=== PATIENT | male | born 1995 | race Caucasian/White ===

== ENCOUNTER 2017-04-02 22:33 | Emergency (ER) | payer OTHER ==
[~2017-04-02] VITALS: Ht 188 cm; Wt 97.5 kg
[2017-04-02 23:11] LABS: BASO % 0 % (0-3); EOS % 1 % (0-3); HEMATOCRIT 41.4 % (39.0-53.0); HEMOGLOBIN 13.9 g/dL (13.0-17.5); LYMPH # 1.7 x10^3/uL (1.0-4.8); LYMPH % 16 % (24-48); MEAN CORPUSCULAR HEMOGLOBIN 28 pg (25-35); MEAN CORPUSCULAR HGB CONC 34 g/dL (31-37); MEAN CORPUSCULAR VOLUME 83 fL (79-100); MONO % 8 % (0-9); NEUT % 75 % (31-73); PLATELET COUNT 168 x10^3/uL (140-400); RED BLOOD COUNT 4.99 x10^6/uL (4.30-5.70); RED CELL DISTRIBUTION WIDTH 14.3 % (11.5-14.5); WHITE BLOOD COUNT 10.8 x10^3/uL (4.0-11.0)
[2017-04-02] MEDS ORDERED: ONDANSETRON PF 4 MG/2 ML VIAL. IV ONE (23:15)
[2017-04-02] MEDS ORDERED: HYDROmorphone 2 MG/ML VIAL IV ONE (23:15)
[2017-04-02 23:19] LABS: CALCIUM 8.9 mg/dL (8.5-10.1); CREATININE 1.2 mg/dL (0.7-1.3); POTASSIUM 4.1 mmol/L (3.5-5.1)
[2017-04-02 23:20] LABS: INR 1.1 (0.8-1.1); PROTHROMBIN TIME PATIENT 13.6 SEC (11.7-14.0)
[2017-04-02 23:25] LABS: ALBUMIN 4.5 g/dL (3.4-5.0); ALBUMIN/GLOBULIN RATIO 1.4 (1.0-1.7); TOTAL BILIRUBIN 0.4 mg/dL (0.2-1.0); TOTAL PROTEIN 7.8 g/dL (6.4-8.2)
[2017-04-02] MEDS ORDERED: HYDR-971 PO (23:46)
[2017-04-02] MEDS ORDERED: IBUP-1007 PO (23:46)
--- NOTE | 2017-04-02 23:46 | PHYS DOC ---
Past Medical History Past Medical History: No Pertinent History Past Surgical History: Appendectomy Alcohol Use: None Additional Information: SOBER Drug Use: None Adult General Chief Complaint Chief Complaint: ANKLE PROBLEM HPI HPI Patient is a 21 year old gentleman who presents here today complaining of possible open fracture of his right ankle on the lateral aspect that occurred while he was playing fastball. Patient reports while playing basketball he twisted his ankle and he fell to the ground. Per EMS he noticed an abrasion to the area and they told him that he has an open fracture. Patient does not recall any bone or bone fragment poking through the skin. Per the patient he does not recall anybody seeing him are telling him that there was bone poking through but he doesn't recall them saying that bone might have poked through since it was a abrasion to his right ankle and they're presuming that he had a right ankle fracture. Patient denies any head trauma. Patient denies any pain anywhere else. Patient denies any pain to his C-spine T-spine or L-spine. Patient denies any pain to his upper extremities. Patient denies any pain to his bilateral knees or pelvis. Patient denies any trauma to his left lower extremity. Patient was given intranasal fentanyl by EMS with adequate relief in pain. Patient denies any past medical history. Patient has any hypertension diabetes liver longer kidney pals. Patient does not smoke drink or do any drugs. Patient is currently incarcerated. Patient reports his tetanus status up-to-date when he was in the . Review of systems: Constitutional: fever andr chills [] Eyes: Denies change in visual acuity, redness, or eye pain [] All other review systems are negative except as documented in the history of present illness portion. Physical exam: Constitutional: Well developed, well nourished, no acute distress, non-toxic appearance. [] HENT: Normocephalic, atraumatic, bilateral external ears normal, oropharynx moist, no oral exudates, nose normal. [] Eyes: PERRLA, EOMI, conjunctiva normal, no discharge. [] Neck: Normal range of motion, no tenderness, supple, no stridor. [] Cardiovascular:Heart rate regular rhythm, Lungs & Thorax: Bilateral breath sounds clear to auscultation [] Abdomen: Bowel sounds normal, soft, no tenderness, no masses, no pulsatile masses. [] Skin: Warm, dry, no erythema, no rash. [] Back: No tenderness, no CVA tenderness. [] Extremities: Neurologic: Alert and oriented X 3, normal motor function, normal sensory function, no focal deficits noted. [] Psychologic: Affect normal, judgement normal, mood normal. [] Patient's physical exam is remarkable for tenderness to palpation to his right lateral malleolus with a moderate amount of soft tissue swelling. There is no bony deformity palpable. Patient has no tenderness palpation to both knees. Patient has no significant tenderness to palpation to his right foot. Patient has no other tenderness palpation throughout his body. Patient has no C-spine T- spine or L-spine tenderness to palpation. Patient's pulses are 2+ bilaterally and equal to his lower extremities. Patient has excellent capillary refill. Patient's DP and PT pulses are both 2+ and equal bilaterally patient does have what appears to be a superficial abrasion to the lateral aspect of his right ankle anterior to the lateral malleolus. Patient's x-ray in the ER reveals no acute fracture to his ankle or foot. Patient was initially called out as a trauma activation secondary to the report by EMS that he had a open fracture. Upon further evaluation of the patient in the ER the patient does indeed not have a fracture and likely just a ankle sprain. The abrasion to his right ankle appears to be to anterior for to be secondary to bony protrusion. I think the likelihood of bony protrusion is extremely low given that there are no fractures and that the alignment of the abrasion is not consistent with the malleolus that appears to be more anterior which be less likely with an ankle sprain. The wound was explored and it does have an endpoint it does not appear to be a laceration site appears to be a superficial abrasion which met of occurred and is at the same level as the top of the sneaker that he was wearing. Patient was placed in a posterior and a stirrup splint to his right lower 70. Patient was neurovascularly intact after splint application. I have paged Dr. Donnelly to inform her of the patient who will need to have follow-up. Patient was discharged home with police custody and was informed to follow up with his primary care physician/custody clinic patient was placed in crutches. Patient was discharged home with Lortab and ibuprofen. Current Medications Current Medications Current Medications Medications (Trade) Dose Ordered Sig/Dolly Start Time Stop Time Status Last Admin Dose Admin Cefazolin Sodium 50 ml @ As Directed STK-MED ONCE 04/02/17 23:24 04/02/17 23:25 DC Hydromorphone HCl (Dilaudid) 1 mg 1X ONCE 04/02/17 23:15 04/02/17 23:16 DC 04/02/17 23:08 1 MG Ondansetron HCl (Zofran) 4 mg 1X ONCE 04/02/17 23:15 04/02/17 23:16 DC 04/02/17 23:07 4 MG Allergies Allergies Allergies Coded Allergies Type Severity Reaction Last Updated Verified No Known Drug Allergies 04/02/17 No Physical Exam Physical Exam Constitutional: Well developed, well nourished, no acute distress, non-toxic appearance. [] HENT: Normocephalic, atraumatic, bilateral external ears normal, oropharynx moist, no oral exudates, nose normal. [] Eyes: PERRLA, EOMI, conjunctiva normal, no discharge. [] Neck: Normal range of motion, no tenderness, supple, no stridor. [] Cardiovascular:Heart rate regular rhythm, no murmur [] Lungs & Thorax: Bilateral breath sounds clear to auscultation [] Abdomen: Bowel sounds normal, soft, no tenderness, no masses, no pulsatile masses. [] Skin: Warm, dry, no erythema, no rash. [] Back: No tenderness, no CVA tenderness. [] Extremities: No tenderness, no cyanosis, no clubbing, ROM intact, no edema. [] Neurologic: Alert and oriented X 3, normal motor function, normal sensory function, no focal deficits noted. [] Psychologic: Affect normal, judgement normal, mood normal. [] Current Patient Data Vital Signs Vital Signs Date Time Temp Pulse Resp B/P (MAP) Pulse Ox O2 Delivery O2 Flow Rate FiO2 04/03/17 00:35 80 145/66 (92) 98 Room Air 04/02/17 23:08 18 04/02/17 22:33 98.6 98.6 Lab Values Laboratory Tests Test 04/02/17 22:37 04/02/17 23:00 Prothrombin Time 13.6 SEC (11.7-14.0) Prothrombin Time INR 1.1 (0.8-1.1) Sodium Level 139 mmol/L (136-145) Potassium Level 4.1 mmol/L (3.5-5.1) Chloride Level 103 mmol/L (98-107) Carbon Dioxide Level 28 mmol/L (21-32) Anion Gap 8 (6-14) Blood Urea Nitrogen 19 mg/dL (8-26) Creatinine 1.2 mg/dL (0.7-1.3) Estimated GFR (Cockcroft-Gault) 75.0 BUN/Creatinine Ratio 16 (6-20) Glucose Level 110 mg/dL (70-99) H Calcium Level 8.9 mg/dL (8.5-10.1) Total Bilirubin 0.4 mg/dL (0.2-1.0) Aspartate Amino Transferase (AST) 19 U/L (15-37) Alanine Aminotransferase (ALT) 35 U/L (16-63) Alkaline Phosphatase 155 U/L (46-116) H Total Protein 7.8 g/dL (6.4-8.2) Albumin 4.5 g/dL (3.4-5.0) Albumin/Globulin Ratio 1.4 (1.0-1.7) White Blood Count 10.8 x10^3/uL (4.0-11.0) Red Blood Count 4.99 x10^6/uL (4.30-5.70) Hemoglobin 13.9 g/dL (13.0-17.5) Hematocrit 41.4 % (39.0-53.0) Mean Corpuscular Volume 83 fL (79-100) Mean Corpuscular Hemoglobin 28 pg (25-35) Mean Corpuscular Hemoglobin Concent 34 g/dL (31-37) Red Cell Distribution Width 14.3 % (11.5-14.5) Platelet Count 168 x10^3/uL (140-400) Neutrophils (%) (Auto) 75 % (31-73) H Lymphocytes (%) (Auto) 16 % (24-48) L Monocytes (%) (Auto) 8 % (0-9) Eosinophils (%) (Auto) 1 % (0-3) Basophils (%) (Auto) 0 % (0-3) Neutrophils # (Auto) 8.1 x10^3uL (1.8-7.7) H Lymphocytes # (Auto) 1.7 x10^3/uL (1.0-4.8) Monocytes # (Auto) 0.9 x10^3/uL (0.0-1.1) Eosinophils # (Auto) 0.1 x10^3/uL (0.0-0.7) Basophils # (Auto) 0.0 x10^3/uL (0.0-0.2) Laboratory Tests 04/02/17 23:00 Laboratory Tests 04/02/17 22:37 EKG EKG [] Radiology/Procedures Radiology/Procedures [] Course & Med Decision Making Course & Med Decision Making Pertinent Labs and Imaging studies reviewed. (See chart for details) [] Dragon Disclaimer Dragon Disclaimer This electronic medical record was generated, in whole or in part, using a voice recognition dictation system. Departure Departure Impression: Primary Impression: Ankle sprain Additional Impression: Abrasion of ankle Disposition: HOME, SELF-CARE Condition: IMPROVED Referrals: UNKNOWN PCP NAME (PCP) PEDRO PABLO DONNELLY MD Patient Instructions: Abrasions, Ankle Sprain, Cast or Splint Care, Crutch Use Additional Instructions: Please follow up with your primary care doctor for reevaluation and long-term management of her ankle sprain. We have given you the phone number for Dr. Donnelly in order to make follow-up arrangements with her if you have any questions or concerns. You may weight-bear as tolerated. Use crutches as instructed. Keep legs elevated when resting. Utilize the pain medicines given to assist with comfort for the next 48 hours. Please talk to her family doctor her primary care physician for long-term management of your pain if needed. Scripts Hydrocodone/Apap 5-325 (NORCO 5-325 TABLET) 1 Each Tablet 1 TAB PO QID Y for PAIN, #10 TAB Prov: DOYLE WEI MD 04/02/17 Ibuprofen (IBUPROFEN) 600 Mg Tablet 600 MG PO PRN Q6HRS Y for PAIN, #20 TAB Prov: DOYLE WEI MD 04/02/17 Problem Qualifiers DOYLE WEI MD Apr 02, 2017 23:46
[2017-04-03 00:35] VITALS: BP 145/66
--- NOTE | 2017-04-03 07:45 | RAD ---
Indication injury, pain. AP oblique and lateral views of the right ankle were obtained. Similar AP oblique and lateral views of the right foot were obtained. The ankle demonstrates considerable soft tissue swelling over the lateral malleolus. No bony abnormality is seen. Views of the foot are also negative with regards to any acute bony finding. IMPRESSION: No acute bony finding seen involving the foot or ankle
== END 2017-04-03 00:50 | disposition home or self-care (01) ==
LOC: EEVIPCON 22:33 → ER 22:33
DX: S93.401A Sprain of unspecified ligament of right ankle, initial encounter (principal); W19.XXXA Unspecified fall, initial encounter; Y93.67 Activity, basketball; Y99.8 Other external cause status; Y92.89 Other specified places as the place of occurrence of the external cause
CPT/HCPCS: 29515; 36415; 73610; 73630; 80053; 85027; 85610; 86850; 86900; 86901; 96365; 96375; 99285; J0690; J1170; J2405